=== PATIENT | male | born 1940 | race Caucasian/White ===

== ENCOUNTER 2017-08-25 09:27 | Day surgery (SDC) | payer MEDICARE, BC ==
[~2017-08-25 09:27] MED LIST: Acetaminophen TAB* 325 MG PO PRN; Buffered Lidocaine 0.9% SYRIN* 5 ML/SYR SYRINGE INTRADERM ONE
[2017-08-25] MEDS ORDERED: Midazolam* 1 MG/ML 2 ML VIAL (2 MG) ONE (11:10)
[2017-08-25] MEDS ORDERED: Phenylephr/Ketorolac 1%/0.3% OPH DROP BTL ONE ×2 (11:59)
[2017-08-25 12:17] VITALS: BP 155/92
[2017-08-25] MEDS ORDERED: Lidocaine 1% MPF* 2 ML VIAL ONE (12:41)
[2017-08-25] MEDS ORDERED: Tetracaine 0.5% OPTH.SOL 4 ML* 1 DROP BTL ONE (12:41)
[2017-08-25] MEDS ORDERED: Tropicamide 1% OPTH.SOL* BTL ONE (12:41)
[2017-08-25] MEDS ORDERED: Cyclopentolate 1% OPTH.SOL* 2 ML BTL ONE (12:41)
[2017-08-25] MEDS ORDERED: Phenylephrine 2.5% OPTH.SOL* 2 ML BTL ONE (12:41)
[2017-08-25] MEDS ORDERED: Neomycin/Polymy/Dex OPHTH.OIN* 3.5 GM ONE (12:41)
[2017-08-25] MEDS ORDERED: Ketorolac 0.5% OPHTH (NF) 0.5 % 5 ML BTL ONE (12:42)
--- NOTE | 2017-08-25 15:56 | OP ---
DATE OF OPERATION/DATE OF DICTATION: 08/25/2017 - MERGED WITH [facility] DATE OF : 1940. SURGEON: Dr. Nathaniel Conway. SHORTHAND TEACHER: None. ANESTHESIA: Topical with intravenous sedation. PRE-OP DIAGNOSIS: Cataract, left eye. POST-OP DIAGNOSIS: Cataract, left eye. OPERATIVE PROCEDURE: Phacoemulsification and cataract extraction with posterior chamber intraocular lens implant, left eye. COMPLICATIONS: None. BLOOD LOSS: None. DESCRIPTION OF PROCEDURE: The patient was brought to the operating room and received a small amount of intravenous sedation. A drop of Tetracaine was placed in his left eye. He was prepped and draped in the usual sterile fashion for ophthalmic surgery and attention was directed to the left eye where a speculum was placed. A paracentesis was created at the 5 o'clock position and 0.1 cc of 1 percent preservative-free Lidocaine was injected into the anterior chamber followed by DisCoVisc. The eye was digitally stabilized while a 2.75 mm keratome was used to create a triplanar clear corneal incision at the 3 o'clock position. A continuous curvilinear capsulorrhexis was created with a cystotome and Utrata forceps. BSS on a cannula was used to hydrodissect the lens from the capsule. Phacoemulsification was performed in a [id number] technique to create four fragments which were removed. Residual cortical material was removed with irrigation and aspiration. DisCoVisc was used to inflate the capsular bag and an AUOOTO 23.5 diopter lens was folded and inserted into the capsular bag. DisCoVisc was removed using irrigation and aspiration. BSS on a cannula was used to hydrate the corneal stroma and seal the wound. At the end of the case the pupil was round and the lens was centered. The eye was of normal pressure and the wound was water tight. The speculum was removed and topical Maxitrol ointment was placed on the surface of the eye. The eye was closed, patched and shielded and the patient was sent to the recovery room in stable condition with post operative instructions and follow-up appointment given. [id number]/CPS #: [id number] MTDD
== END 2017-08-25 12:14 | disposition home or self-care (01) ==
LOC: OREAST 09:27
PROVIDERS: ATTEND Ophthalmology
DX: H25.12 Age-related nuclear cataract, left eye (principal); I10 Essential (primary) hypertension; M10.9 Gout, unspecified; M48.07 Spinal stenosis, lumbosacral region; E78.2 Mixed hyperlipidemia; Z87.891 Personal history of nicotine dependence; G47.33 Obstructive sleep apnea (adult) (pediatric); G89.29 Other chronic pain; Z79.891 Long term (current) use of opiate analgesic
CPT/HCPCS: A9270-GY; C9447; J2250; V2632

== ENCOUNTER 2021-03-14 09:15 | Inpatient (IN) ==
[~2021-03-14 09:15] MED LIST changes: -Acetaminophen TAB* 325 MG PO PRN; -Buffered Lidocaine 0.9% SYRIN* 5 ML/SYR SYRINGE INTRADERM ONE; +Buffered Lidocaine 1% SYRIN 1 ml INTRADERM ONE; +Ertapenem 1 GM in NS 0.9% 50 ML BAG IVPB SCH; +Famotidine IV 10 MG/ML 2 ml VIAL (20 mg) IV ONE; +Lactated Ringers 1000 ml BAG 1,000 ML IV SCH
[2021-03-14] MEDS ORDERED: Famotidine IV 10 MG/ML 2 ml VIAL (20 mg) ONE (10:27)
[2021-03-14] MEDS ORDERED: Heparin 5000 UNITS/ML 1 mL VIAL ONE (10:27)
[2021-03-14] MEDS ORDERED: Rocuronium 50 mg VIAL 10 mg/ml 5 ml VIAL (50 mg) ONE (10:32)
[2021-03-14] MEDS ORDERED: fentaNYL 250 mcg/5 ml 50 MCG/ML 5 ml VIAL (250 MCG) ONE (10:32)
[2021-03-14] MEDS ORDERED: Propofol 10 MG/ML 20 ML BTL ONE (10:32)
[2021-03-14] MEDS ORDERED: Dexamethasone IV 4 MG/ML VIAL 1 ml VIAL ONE (10:32)
[2021-03-14] MEDS ORDERED: Midazolam 2 mg/2 ml VIAL 1 mg/ml 2 ml VIAL (2 mg) ONE (10:32)
[2021-03-14] MEDS ORDERED: Lidocaine 2% PF 5 ML VIAL ONE ×2 (10:32→15:27)
[2021-03-14] MEDS ORDERED: Ondansetron 4 mg VIAL 2 MG/ML 2 ml VIAL ONE (10:32)
[2021-03-14] MEDS ORDERED: Lidocaine 1% w EPI 1:100,000 MDV 20 ML VIAL ONE ×2 (11:25→12:21)
[2021-03-14] MEDS ORDERED: Bupivacaine 0.5% SDV PF 30ML VIAL ONE (11:26)
[2021-03-14] MEDS ORDERED: fentaNYL 100 mcg/2 ml 50 MCG/ML VIAL IV PRN (12:37)
[2021-03-14] MEDS ORDERED: Ondansetron 4 mg VIAL 2 MG/ML 2 ml VIAL IV PRN ×2 (12:37→16:02)
[2021-03-14] MEDS ORDERED: Naloxone 0.4 mg VIAL 0.4 mg/ml 1 ml VIAL IV PRN (12:37)
[2021-03-14] MEDS ORDERED: Sevoflurane BOTTLE ONE (13:03)
[2021-03-14] MEDS ORDERED: HYDROmorphone 1 MG/1 ML SYRINGE ONE (13:27)
[2021-03-14] MEDS ORDERED: fentaNYL 100 mcg/2 ml 50 MCG/ML VIAL ONE ×2 (15:33→17:50)
[2021-03-14] MEDS ORDERED: HYDROmorphone 0.5 MG/0.5 ML SYRINGE IV SLOW PU PRN (19:34)
[2021-03-14] MEDS ORDERED: hydrALAZINE 20 mg/ml 1 ML Vial IV IV SLOW PU PRN (20:49)
[2021-03-15 11:14] LABS: Eosinophil % 0.3 %; Hematocrit 34 % (42-52); Hemoglobin 11.1 g/dL (14.0-18.0); Lymphocyte % 9.8 %; Mean Corpuscular HGB Conc 33 g/dL (31-36); Mean Corpuscular Hemoglobin 28 pg (27-31); Mean Corpuscular Volume 86 fL (80-94); Mean Platelet Volume 7.4 fL (7.4-10.4); Platelet Count 206 10^3/uL (150-450); Red Blood Count 3.99 10^6 /uL (4.18-5.48); Red Cell Distribution Width 14 % (10-15); White Blood Count 9.9 10^3/uL (3.5-10.8)
[2021-03-15 11:52] LABS: Calcium 8.4 mg/dL (8.6-10.3); EGFR African American 53.5 (>60); EGFR Non-African American 44.2 (>60); Potassium 3.8 mmol/L (3.5-5.0)
[2021-03-15] MEDS ORDERED: Enoxaparin 30 MG/0.3 ML SYR SUBCUT SCH (12:00)
[2021-03-16 05:20] LABS: ABS Eosinophils 0.1 10^3/ul (0-0.6); ABS Lymphocytes 0.8 10^3/ul (1.0-4.8); ABS Monocytes 0.8 10^3/ul (0-0.8); ABS Neutrophils 5.8 10^3/ul (1.5-7.7); Eosinophil % 1.9 %; Hematocrit 30 % (42-52); Hemoglobin 9.8 g/dL (14.0-18.0); Lymphocyte % 10.4 %; Mean Corpuscular HGB Conc 33 g/dL (31-36); Mean Corpuscular Hemoglobin 28 pg (27-31); Mean Corpuscular Volume 85 fL (80-94); Mean Platelet Volume 7.3 fL (7.4-10.4); Platelet Count 150 10^3/uL (150-450); Red Blood Count 3.48 10^6 /uL (4.18-5.48); Red Cell Distribution Width 14 % (10-15); White Blood Count 7.5 10^3/uL (3.5-10.8)
[2021-03-16 05:36] LABS: Calcium 7.8 mg/dL (8.6-10.3); EGFR Non-African American 52.9 (>60); Potassium 3.9 mmol/L (3.5-5.0)
[2021-03-16 08:29] VITALS: BP 124/65
== END 2021-03-16 10:22 | disposition home or self-care (01) | DRG 330 ==
LOC: AA 10:26 → SSU 18:43
PROVIDERS: ADMIT Surgery; ATTEND Surgery

== ENCOUNTER 2021-06-20 17:29 | Inpatient (IN) ==
[2021-06-20 20:15] LABS: ABS Lymphocytes 0.4 10^3/ul (1.0-4.8); ABS Monocytes 0.5 10^3/ul (0-0.8); ABS Neutrophils 8.9 10^3/ul (1.5-7.7); Hematocrit 39 % (42-52); Lymphocyte % 3.7 %; Mean Corpuscular HGB Conc 33 g/dL (31-36); Mean Corpuscular Hemoglobin 27 pg (27-31); Mean Corpuscular Volume 82 fL (80-94); Mean Platelet Volume 7.2 fL (7.4-10.4); Nucleated Red Blood Cells % 0.1; Platelet Count 145 10^3/uL (150-450); Red Blood Count 4.75 10^6 /uL (4.18-5.48); Red Cell Distribution Width 17 % (10-15); Venous Bicarbonate HCO3 24.4 mmol/L (24-28); White Blood Count 9.8 10^3/uL (3.5-10.8)
[2021-06-20 20:24] LABS: Activated Partial Thrombo Time 32.2 seconds (26.0-38.0); INR 1.49 (0.86-1.15)
[2021-06-20 20:44] LABS: ALT 24 U/L (7-52); AST 29 U/L (13-39); Alkaline Phosphatase 57 U/L (35-149); Anion Gap 11 mmol/L (2-11); Blood Urea Nitrogen 26 mg/dL (6-24); C Reactive Protein 257.77 mg/L (<8.01); CO2 Carbon Dioxide 25 mmol/L (22-32); Calcium 9.4 mg/dL (8.6-10.3); Chloride 97 mmol/L (101-111); Globulin 4.2 g/dL (2-4); Glucose 113 mg/dL (70-100); Potassium 3.6 mmol/L (3.5-5.0); Sodium 133 mmol/L (135-145); Total Protein 8.2 g/dL (6.4-8.9); eGFR CKD-EPI 40.8 (>60)
[2021-06-20 20:47] LABS: LDH 246 U/L (140-271)
[2021-06-20 20:52] LABS: Troponin I 0.04 ng/mL (<0.03)
[2021-06-20 21:07] LABS: Ferritin 160.2 ng/mL (24-336)
[2021-06-21] MEDS ORDERED: LORazepam 2 mg VIAL 1 ml IV PUSH ONE (01:57)
[2021-06-21] MEDS ORDERED: Ondansetron 4 mg VIAL 2 MG/ML 2 ml VIAL IV PRN (01:57)
[2021-06-21] MEDS ORDERED: Lorazepam PYXIS KEY PRN (01:57)
[2021-06-21 02:25] LABS: Troponin I 0.03 ng/mL (<0.03)
[2021-06-21] MEDS ORDERED: Remdesivir 100 mg Vial 200 MG in NS 0.9% 250 ml 210 ML IV ONE (02:30)
[2021-06-21] MEDS: Enoxaparin 40 MG/0.4 ML SYR SUBCUT SCH (04:36)
[2021-06-21 05:19] LABS: Troponin I 0.04 ng/mL (<0.03)
[2021-06-21 06:31] LABS: Troponin I 0.03 ng/mL (<0.03)
[2021-06-21] MEDS ORDERED: Albuterol/Ipratropium NEB.SOL (2.5/0.5 MG) 3 ML NEB.SOLN INH PRN (16:37)
[2021-06-22 05:41] LABS: Hematocrit 36 % (42-52); Hemoglobin 12.1 g/dL (14.0-18.0); Mean Corpuscular HGB Conc 33 g/dL (31-36); Mean Corpuscular Hemoglobin 27 pg (27-31); Mean Corpuscular Volume 82 fL (80-94); Mean Platelet Volume 7.7 fL (7.4-10.4); Platelet Count 156 10^3/uL (150-450); Red Blood Count 4.41 10^6 /uL (4.18-5.48); Red Cell Distribution Width 17 % (10-15); White Blood Count 9.4 10^3/uL (3.5-10.8)
[2021-06-22 05:48] LABS: INR 1.33 (0.86-1.15)
[2021-06-22 05:57] LABS: Albumin 3.4 g/dL (3.2-5.2); Albumin/Globulin Ratio 0.9 (1-3); Calcium 9.3 mg/dL (8.6-10.3); Globulin 3.9 g/dL (2-4); Magnesium 2.5 mg/dL (1.9-2.7); Phosphorus 2.8 mg/dL (2.5-5.0); Potassium 3.7 mmol/L (3.5-5.0); Total Bilirubin 0.4 mg/dL (0.2-1.0); Total Protein 7.3 g/dL (6.4-8.9); eGFR CKD-EPI 55.2 (>60)
[2021-06-22] MEDS: Enoxaparin 40 MG/0.4 ML SYR SUBCUT SCH (09:18)
[2021-06-22] MEDS: Remdesivir 100 mg Vial 100 MG in NS 0.9% 250 ml 230 ML IV SCH (11:22)
[2021-06-22] MEDS ORDERED: Furosemide 20 mg/2 ml IV VIAL IV SLOW PU ONE ×2 (12:21→18:05)
[2021-06-22] MEDS ORDERED: Saline NASAL SPRAY 0.65% BTL BOTH NARES PRN (16:01)
[2021-06-23 05:48] LABS: INR 1.28 (0.86-1.15)
[2021-06-23 05:57] LABS: Albumin 3.4 g/dL (3.2-5.2); Albumin/Globulin Ratio 0.9 (1-3); Calcium 8.9 mg/dL (8.6-10.3); Globulin 3.7 g/dL (2-4); Potassium 3.8 mmol/L (3.5-5.0); Total Bilirubin 0.4 mg/dL (0.2-1.0); Total Protein 7.1 g/dL (6.4-8.9); eGFR CKD-EPI 53.3 (>60)
[2021-06-23] MEDS: Enoxaparin 40 MG/0.4 ML SYR SUBCUT SCH (09:08)
[2021-06-23] MEDS ORDERED: Furosemide 40 mg/4 ml IV VIAL IV SLOW PU ONE (09:22)
[2021-06-23] MEDS: Remdesivir 100 mg Vial 100 MG in NS 0.9% 250 ml 230 ML IV SCH (09:56)
[2021-06-24 07:33] LABS: Hematocrit 33 % (42-52); Hemoglobin 10.5 g/dL (14.0-18.0); Mean Corpuscular HGB Conc 32 g/dL (31-36); Mean Corpuscular Hemoglobin 27 pg (27-31); Mean Corpuscular Volume 84 fL (80-94); Mean Platelet Volume 7.9 fL (7.4-10.4); Platelet Count 115 10^3/uL (150-450); Red Cell Distribution Width 16 % (10-15); White Blood Count 7.8 10^3/uL (3.5-10.8)
[2021-06-24 07:36] LABS: Albumin 3.3 g/dL (3.2-5.2); Calcium 8.7 mg/dL (8.6-10.3); Potassium 3.9 mmol/L (3.5-5.0); Total Bilirubin 0.4 mg/dL (0.2-1.0)
[2021-06-24 07:42] LABS: Globulin 3.2 g/dL (2-4); Total Protein 6.5 g/dL (6.4-8.9); eGFR CKD-EPI 56.8 (>60)
[2021-06-24] MEDS: Remdesivir 100 mg Vial 100 MG in NS 0.9% 250 ml 230 ML IV SCH (10:03)
[2021-06-24] MEDS: Enoxaparin 40 MG/0.4 ML SYR SUBCUT SCH (10:21)
[2021-06-24 12:21] LABS: INR 1.25 (0.86-1.15)
[2021-06-24] MEDS: Senna TAB 8.6 mg TAB PO SCH (20:36)
[2021-06-24] MEDS: Polyethylene Glycol 3350 17 GM PACKET PO SCH (21:00)
[2021-06-25 05:55] LABS: ABS Eosinophils 0.1 10^3/ul (0-0.6); ABS Lymphocytes 0.8 10^3/ul (1.0-4.8); ABS Monocytes 0.6 10^3/ul (0-0.8); ABS Neutrophils 7.6 10^3/ul (1.5-7.7); Eosinophil % 0.8 %; Hematocrit 35 % (42-52); Hemoglobin 11.5 g/dL (14.0-18.0); Mean Corpuscular HGB Conc 33 g/dL (31-36); Mean Corpuscular Hemoglobin 27 pg (27-31); Mean Corpuscular Volume 82 fL (80-94); Mean Platelet Volume 7.2 fL (7.4-10.4); Platelet Count 163 10^3/uL (150-450); Red Blood Count 4.22 10^6 /uL (4.18-5.48); Red Cell Distribution Width 17 % (10-15); White Blood Count 9.1 10^3/uL (3.5-10.8)
[2021-06-25 06:00] LABS: INR 1.2 (0.86-1.15)
[2021-06-25 06:11] LABS: Albumin 3.2 g/dL (3.2-5.2); Calcium 8.5 mg/dL (8.6-10.3); Globulin 3.2 g/dL (2-4); Potassium 4.1 mmol/L (3.5-5.0); Total Bilirubin 0.4 mg/dL (0.2-1.0); Total Protein 6.4 g/dL (6.4-8.9); eGFR CKD-EPI 65.8 (>60)
[2021-06-25] MEDS: Enoxaparin 40 MG/0.4 ML SYR SUBCUT SCH (08:30)
[2021-06-25] MEDS: Remdesivir 100 mg Vial 100 MG in NS 0.9% 250 ml 230 ML IV SCH (09:07)
[2021-06-25 09:26] LABS: C Reactive Protein 38.19 mg/L (<8.01)
[2021-06-25] MEDS ORDERED: Furosemide 40 mg/4 ml IV VIAL IV SLOW PU ONE (10:32)
[2021-06-25] MEDS: Polyethylene Glycol 3350 17 GM PACKET PO SCH (18:57)
[2021-06-25] MEDS: Senna TAB 8.6 mg TAB PO SCH (21:30)
[2021-06-26 06:55] LABS: ABS Eosinophils 0.2 10^3/ul (0-0.6); ABS Lymphocytes 0.7 10^3/ul (1.0-4.8); ABS Monocytes 0.7 10^3/ul (0-0.8); ABS Neutrophils 9.4 10^3/ul (1.5-7.7); Eosinophil % 1.9 %; Hematocrit 36 % (42-52); Lymphocyte % 6.4 %; Mean Corpuscular HGB Conc 34 g/dL (31-36); Mean Corpuscular Hemoglobin 28 pg (27-31); Mean Corpuscular Volume 82 fL (80-94); Mean Platelet Volume 7.7 fL (7.4-10.4); Platelet Count 209 10^3/uL (150-450); Red Blood Count 4.35 10^6 /uL (4.18-5.48); Red Cell Distribution Width 17 % (10-15)
[2021-06-26 07:02] LABS: INR 1.23 (0.86-1.15)
[2021-06-26] MEDS ORDERED: Furosemide 40 mg/4 ml IV VIAL IV ONE (07:11)
[2021-06-26 07:16] LABS: Albumin 3.3 g/dL (3.2-5.2); Calcium 8.6 mg/dL (8.6-10.3); Globulin 3.2 g/dL (2-4); Magnesium 2.2 mg/dL (1.9-2.7); Potassium 4.3 mmol/L (3.5-5.0); Total Bilirubin 0.4 mg/dL (0.2-1.0); Total Protein 6.5 g/dL (6.4-8.9); eGFR CKD-EPI 61.3 (>60)
[2021-06-26] MEDS: Enoxaparin 40 MG/0.4 ML SYR SUBCUT SCH (08:04)
[2021-06-26] MEDS: Polyethylene Glycol 3350 17 GM PACKET PO SCH (22:15)
[2021-06-26] MEDS: Senna TAB 8.6 mg TAB PO SCH (22:18)
[2021-06-27 04:47] LABS: ABS Eosinophils 0.2 10^3/ul (0-0.6); ABS Lymphocytes 0.8 10^3/ul (1.0-4.8); ABS Monocytes 0.6 10^3/ul (0-0.8); ABS Neutrophils 9.7 10^3/ul (1.5-7.7); Hematocrit 36 % (42-52); Hemoglobin 12.2 g/dL (14.0-18.0); Mean Corpuscular HGB Conc 34 g/dL (31-36); Mean Corpuscular Hemoglobin 27 pg (27-31); Mean Corpuscular Volume 82 fL (80-94); Mean Platelet Volume 7.8 fL (7.4-10.4); Platelet Count 254 10^3/uL (150-450); Red Blood Count 4.43 10^6 /uL (4.18-5.48); Red Cell Distribution Width 17 % (10-15); White Blood Count 11.3 10^3/uL (3.5-10.8)
[2021-06-27 08:11] LABS: Calcium 8.5 mg/dL (8.6-10.3); Potassium 4.1 mmol/L (3.5-5.0)
[2021-06-27 08:17] LABS: eGFR CKD-EPI 54.2 (>60)
[2021-06-27] MEDS: Enoxaparin 40 MG/0.4 ML SYR SUBCUT SCH (08:36)
[2021-06-27] MEDS: Senna TAB 8.6 mg TAB PO SCH (21:59)
[2021-06-27] MEDS: Polyethylene Glycol 3350 17 GM PACKET PO SCH (22:00)
[2021-06-28 04:16] LABS: ABS Eosinophils 0.2 10^3/ul (0-0.6); ABS Lymphocytes 0.7 10^3/ul (1.0-4.8); ABS Monocytes 0.7 10^3/ul (0-0.8); ABS Neutrophils 9.2 10^3/ul (1.5-7.7); Eosinophil % 1.8 %; Hematocrit 35 % (42-52); Hemoglobin 11.7 g/dL (14.0-18.0); Lymphocyte % 6.6 %; Mean Corpuscular HGB Conc 33 g/dL (31-36); Mean Corpuscular Hemoglobin 27 pg (27-31); Mean Corpuscular Volume 83 fL (80-94); Mean Platelet Volume 7.7 fL (7.4-10.4); Nucleated Red Blood Cells % 0.1; Platelet Count 291 10^3/uL (150-450); Red Blood Count 4.25 10^6 /uL (4.18-5.48); Red Cell Distribution Width 17 % (10-15); White Blood Count 10.8 10^3/uL (3.5-10.8)
[2021-06-28 04:31] LABS: Calcium 8.6 mg/dL (8.6-10.3); Potassium 4.2 mmol/L (3.5-5.0); eGFR CKD-EPI 59.5 (>60)
[2021-06-28] MEDS ORDERED: Furosemide 40 mg/4 ml IV VIAL IV ONE (08:11)
[2021-06-28] MEDS: Enoxaparin 40 MG/0.4 ML SYR SUBCUT SCH (09:23)
[2021-06-28] MEDS ORDERED: Magnesium Hydroxide LIQ 30 ML UDC PO PRN (17:02)
[2021-06-28] MEDS: Polyethylene Glycol 3350 17 GM PACKET PO SCH (22:02)
[2021-06-28] MEDS: Senna TAB 8.6 mg TAB PO SCH (22:02)
[2021-06-29 04:56] LABS: ABS Eosinophils 0.1 10^3/ul (0-0.6); ABS Lymphocytes 0.6 10^3/ul (1.0-4.8); ABS Monocytes 0.5 10^3/ul (0-0.8); ABS Neutrophils 7.2 10^3/ul (1.5-7.7); Eosinophil % 1.1 %; Hematocrit 38 % (42-52); Hemoglobin 12.5 g/dL (14.0-18.0); Lymphocyte % 6.8 %; Mean Corpuscular HGB Conc 33 g/dL (31-36); Mean Corpuscular Hemoglobin 28 pg (27-31); Mean Corpuscular Volume 83 fL (80-94); Mean Platelet Volume 7.9 fL (7.4-10.4); Platelet Count 339 10^3/uL (150-450); Red Blood Count 4.52 10^6 /uL (4.18-5.48); Red Cell Distribution Width 17 % (10-15); White Blood Count 8.3 10^3/uL (3.5-10.8)
[2021-06-29 05:12] LABS: Calcium 9.1 mg/dL (8.6-10.3); Potassium 4.5 mmol/L (3.5-5.0); eGFR CKD-EPI 60.1 (>60)
[2021-06-29] MEDS ORDERED: Furosemide 40 mg/4 ml IV VIAL IV ONE (08:18)
[2021-06-29] MEDS: Enoxaparin 40 MG/0.4 ML SYR SUBCUT SCH (09:41)
[2021-06-29] MEDS: Senna TAB 8.6 mg TAB PO SCH (20:56)
[2021-06-29] MEDS: Polyethylene Glycol 3350 17 GM PACKET PO SCH (23:27)
[2021-06-30] MEDS ORDERED: Furosemide 40 mg/4 ml IV VIAL IV ONE (07:26)
[2021-06-30] MEDS: Enoxaparin 40 MG/0.4 ML SYR SUBCUT SCH (08:54)
[2021-06-30] MEDS: Polyethylene Glycol 3350 17 GM PACKET PO SCH (21:13)
[2021-06-30] MEDS: Senna TAB 8.6 mg TAB PO SCH (21:13)
[2021-07-01 07:29] LABS: Calcium 8.7 mg/dL (8.6-10.3); Potassium 4.6 mmol/L (3.5-5.0); eGFR CKD-EPI 44.2 (>60)
[2021-07-01 08:19] VITALS: BP 105/65
[2021-07-01] MEDS: Enoxaparin 40 MG/0.4 ML SYR SUBCUT SCH (09:09)
== END 2021-07-01 12:20 | disposition home or self-care (01) | DRG 177 ==
LOC: ED 17:29 → SUATTDRO 06-21 01:57 → EDHOLD 06-21 01:57 → ICU 06-21 18:21 → MED 06-29 18:08
PROVIDERS: ADMIT Hospitalist; ATTEND Hospitalist